=== PATIENT | male | born 1990 ===

== ENCOUNTER 2018-09-11 13:22 | Emergency (ER) | payer OTHER ==
[2018-09-11 13:35] VITALS: BMI 27.3
[2018-09-11 13:38] VITALS: BP 121/67; PULSE 68; RESP 18; TEMP 98.4; O2SAT 100
[2018-09-11] MEDS ORDERED: Lidocaine 5% Patch TD STA (14:13)
--- NOTE | 2018-09-11 14:14 | C.PDOC ---
History Of Present Illness 28 year old male presents to ED complaining of right upper back pain for the past 2 months. Patient reports pain worsens with movement and he take Tylenol and Motrin occasionally to relieve the pain. Denies fever, chills, weakness, numbness. no chest pain or sob. no leg swelling Time Seen by Provider: 09/11/18 13:45 Chief Complaint (Nursing): Back Pain History Per: Patient History/Exam Limitations: no limitations Onset/Duration Of Symptoms: Days (2 months) Current Symptoms Are (Timing): Still Present Quality Of Discomfort: "Pain" Severity: Moderate Exacerbating Factor(s): Movement Past Medical History Reviewed: Historical Data, Nursing Documentation, Vital Signs Vital Signs: Last Vital Signs Temp 98.4 F 09/11/18 13:35 Pulse 68 09/11/18 13:35 Resp 18 09/11/18 13:35 BP 121/67 09/11/18 13:35 Pulse Ox 100 09/11/18 13:35 - Medical History PMH: No Chronic Diseases Surgical History: No Surg Hx Family History: States: No Known Family Hx - Social History Hx Alcohol Use: Yes Hx Substance Use: No - Immunization History Hx Tetanus Toxoid Vaccination: No Hx Influenza Vaccination: No Hx Pneumococcal Vaccination: No Review Of Systems Constitutional: Negative for: Fever, Chills Cardiovascular: Negative for: Chest Pain, Palpitations Respiratory: Negative for: Cough, Shortness of Breath Gastrointestinal: Negative for: Abdominal Pain Musculoskeletal: Positive for: Back Pain (right upper x 2 months). Negative for: Neck Pain Skin: Negative for: Rash Neurological: Negative for: Weakness, Numbness Physical Exam - Physical Exam Appears: Non-toxic, No Acute Distress Skin: Warm, Dry Head: Atraumatic, Normacephalic Eye(s): bilateral: Normal Inspection Neck: No Midline Cervical Tenderness, No Paracervical Tenderness, No Step Off Deformity Chest: Symmetrical, No Deformity, No Tenderness Cardiovascular: Rhythm Regular, No Murmur Respiratory: No Normal Breath Sounds, No Wheezing Back: Other (reproducible tendernee to Medial right scapula along rhomboid.) Extremity: Normal ROM (all extremities) Pulses: Right Radial: Normal, Left Femoral: Normal Neurological/Psych: Oriented x3, Normal Speech, Normal Cognition ED Course And Treatment O2 Sat by Pulse Oximetry: 100 (RA) Pulse Ox Interpretation: Normal Medical Decision Making Medical Decision Making: pt with long standing right upper back pain (2 months). pt works as a certified recreational therapist, worse with movement. no numbness or tingling. takes tylenol or motrin occasionally. d/c home with ibuprofen dn lidoderm patch Disposition Counseled Patient/Family Regarding: Diagnosis, Need For Followup, Rx Given - Disposition Referrals: [facility] [Outside] Disposition: HOME/ ROUTINE Disposition Time: 14:14 Condition: GOOD Additional Instructions: Evite levantar objetos pesados. [place] ibuprofeno segn lo prescrito. Seguimiento en clnica mdica en pocos gomez. Compresas tibias para el tere dolorosa. Retire el parche de nuevo en 12 horas. Avoid heavy lifting. Take ibuprofen as prescribed. Follow up in medical clinic in a few days. Warm compresses to painful area. Remove patch on back in 12 hours. Prescriptions: Ibuprofen [Motrin] 600 mg PO TID #30 tab Instructions: Muscle Strain (DC) Forms: Gen Discharge Inst Sammarinese, Scalado (Sammarinese) Print Language: NIUEAN - Clinical Impression Clinical Impression: Rhomboid muscle strain - PA / REPATCHER / Resident Statement MD/DO has reviewed & agrees with the documentation as recorded. - Scribe Statement The provider has reviewed the documentation as recorded by the Scribe Stanley Joshua All medical record entries made by the Scribe were at my direction and personally dictated by me. I have reviewed the chart and agree that the record accurately reflects my personal performance of the history, physical exam, medical decision making, and the department course for this patient. I have also personally directed, reviewed, and agree with the discharge instructions and disposition.
[2018-09-11] MEDS ORDERED: Lidocaine 5% Patch TD ONE (14:20)
== END 2018-09-11 14:25 | disposition home or self-care (01) ==
LOC: C.ER 13:22
DX: S29.012A Strain of muscle and tendon of back wall of thorax, initial encounter (principal); X58.XXXA Exposure to other specified factors, initial encounter